=== PATIENT | female | born 1985 | race Caucasian/White ===

== ENCOUNTER 2016-11-28 09:46 | Emergency (ER) | payer OTHER ==
[2016-11-28] MEDS ORDERED: Ondansetron 4 MG/2 ML SDV IV ONE (10:01)
[2016-11-28] MEDS ORDERED: Morphine 4 MG/ML Syringe IVPUSH ONE (10:01)
[2016-11-28] MEDS ORDERED: Sodium Chloride 0.9% 10 ML Syringe FLUSH PRN (10:01)
--- NOTE | 2016-11-28 10:08 | EDM.PDOC ---
ED HPI GENERAL MEDICAL PROBLEM - General Chief Complaint: Upper Extremity Injury/Pain Stated Complaint: ARM FX? [phone] Time Seen by Provider: 11/28/16 10:03 Source of Information: Reports: Patient History Limitations: Reports: No Limitations - History of Present Illness INITIAL COMMENTS - FREE TEXT/NARRATIVE: 31 yo female presents with c/o right arm pain s/p fall off horse. Sensation intact, however very painful to range of motion.Denies LOC. No other complaints. Onset: Today, Sudden Duration: Constant Location: Reports: Upper Extremity, Right Quality: Reports: Ache, Throbbing Severity: Moderate Improves with: Reports: Immobilization Worsens with: Reports: Movement Context: Reports: Activity Associated Symptoms: Reports: No Other Symptoms Right Upper Arm Pain Score (Numeric/FACES): 7 - Related Data Allergies Allergy/AdvReac Type Severity Reaction Status Date / Time No Known Allergies Allergy Verified 11/28/16 10:23 Home Meds: Home Meds Ibuprofen 600 mg PO Q4H PRN 01/19/16 [History] Fluticasone Propionate [Flonase Allergy Relief] 9.9 ml NS DAILY 11/28/16 [ History] Past Medical History - Past Health History Medical/Surgical History: Denies Medical/Surgical History Social & Family History - Family History Family Medical History: Noncontributory - Tobacco Use Smoking Status *Q: Never Smoker - Caffeine Use Caffeine Use: Reports: None Review of Systems - Review of Systems Review Of Systems: ROS reveals no pertinent complaints other than HPI. ED EXAM, GENERAL - Physical Exam Exam: See Below Exam Limited By: No Limitations General Appearance: Alert, WD/WN, No Apparent Distress Eye Exam: Bilateral Eye: Normal Inspection, PERRL Throat/Mouth: Normal Inspection, Normal Lips, Normal Teeth, Normal Gums, Normal Oropharynx, Normal Voice, No Airway Compromise Head: Atraumatic, Normocephalic Neck: Normal Inspection, Supple, Non-Tender, Full Range of Motion Respiratory/Chest: No Respiratory Distress, Lungs Clear, Normal Breath Sounds, No Accessory Muscle Use, Chest Non-Tender Cardiovascular: Normal Peripheral Pulses, Regular Rate, Rhythm, No Edema, No Gallop, No JVD, No Murmur, No Rub Back Exam: Normal Inspection, Full Range of Motion, NT Extremities: Normal Inspection, No Pedal Edema, Normal Capillary Refill, Arm Pain (R upper arm), Limited Range of Motion (due to pain) Neurological: Alert, Oriented, CN II-XII Intact, Normal Cognition, Normal Gait, No Motor/Sensory Deficits Skin Exam: Warm, Dry, Intact, Normal Color, No Rash Course - Vital Signs Last Recorded V/S: Last Vital Signs Temp 97.1 F 11/28/16 10:19 Pulse 77 11/28/16 10:19 Resp 20 11/28/16 10:19 BP 134/86 11/28/16 10:19 Pulse Ox 100 11/28/16 10:19 - Orders/Labs/Meds Orders: Active Orders 24 hr Category Date Time Status HCG QUALITATIVE,URINE [URCHEM] Stat Lab 11/28/16 10:01 Uncollected Sodium Chloride 0.9% [Saline Flush] Med 11/28/16 10:01 Active 10 ml FLUSH ASDIRECTED PRN Saline Lock Insert [OM.PC] Stat Oth 11/28/16 10:00 Ordered Medication Orders Sodium Chloride (Saline Flush) 10 ml FLUSH ASDIRECTED PRN PRN Reason: Keep Vein Open Last Admin: 11/28/16 10:13 Dose: 10 ml Meds: Medications Generic Name Dose Route Start Last Admin Trade Name Freq PRN Reason Stop Dose Admin Sodium Chloride 10 ml 11/28/16 10:01 11/28/16 10:13 Saline Flush FLUSH 10 ml ASDIRECTED PRN Administration Keep Vein Open Discontinued Medications Generic Name Dose Route Start Last Admin Trade Name Freq PRN Reason Stop Dose Admin Morphine Sulfate 4 mg 11/28/16 10:01 11/28/16 10:15 Morphine IVPUSH 11/28/16 10:02 4 mg ONETIME ONE Administration Ondansetron HCl 4 mg 11/28/16 10:01 11/28/16 10:11 Zofran IV 11/28/16 10:02 4 mg ONETIME ONE Administration - Radiology Interpretation Free Text/Narrative:: R midshaft humerus fx - Re-Assessments/Exams Free Text/Narrative Re-Assessment/Exam: 11/28/16 10:[address] [facility], states to place patient in loose sling and have her follow up in the morning at is clinic. States that patinet should sleep in lazy boy chair and be sent home with pain medication. Departure - Departure Time of Disposition: 10:51 Disposition: Home, Self-Care 01 Condition: Good Clinical Impression: Fracture of humerus Qualifiers: Encounter type: initial encounter Humerus Location: shaft Fracture type: closed Fracture morphology: transverse Fracture alignment: nondisplaced Laterality: right Qualified Code(s): S42.324A - Nondisplaced transverse fracture of shaft of humerus, right arm, initial encounter for closed fracture - Discharge Information Instructions: Humerus Fracture Treated With Immobilization, [id number] Forms: ED Department Discharge, ED Return to Work/School Form Additional Instructions: Keep the sling on the arm, sleep in a lazy boy recliner tonight. Go in the morning to the Orthopedic clinic for Dr. Ibrahim at [facility]. Address is [address] [place] [address], call [phone] for questions. TAke the pain medication as needed. Continue to monitor for any decrease in sensation or tingling in fingers/arm. return for any worsening symptoms. Care Plan Goals: Douglas 10/325 # 10 - My Orders Last 24 Hours: My Active Orders 11/28/16 10:00 Saline Lock Insert [OM.PC] Stat 11/28/16 10:01 HCG QUALITATIVE,URINE [URCHEM] Stat Sodium Chloride 0.9% [Saline Flush] 10 ml FLUSH ASDIRECTED PRN - Assessment/Plan Last 24 Hours: My Active Orders 11/28/16 10:00 Saline Lock Insert [OM.PC] Stat 11/28/16 10:01 HCG QUALITATIVE,URINE [URCHEM] Stat Sodium Chloride 0.9% [Saline Flush] 10 ml FLUSH ASDIRECTED PRN
[2016-11-28 10:23] VITALS: BP 134/86
== END 2016-11-28 11:16 | disposition home or self-care (01) ==
LOC: DL.ED 09:46
DX: S42.351A Displaced comminuted fracture of shaft of humerus, right arm, initial encounter for closed fracture (principal); V80.010A Animal-rider injured by fall from or being thrown from horse in noncollision accident, initial encounter; Z79.899 Other long term (current) drug therapy
CPT/HCPCS: 73060; 96374; 96375; 99283; J2270; J2405; J7050